=== PATIENT | male | born 1960 | race Hispanic/Latino ===

== ENCOUNTER 2016-10-20 23:08 | Emergency (ER) | payer OTHER, BC ==
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
[2016-10-21 02:51] VITALS: BP 119/76; PULSE 82; RESP 16; TEMP 97.4
[2016-10-21 05:28] VITALS: O2SAT 95
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
== END 2016-10-21 02:51 | disposition home or self-care (01) ==
LOC: C.ER 23:08
DX: S09.90XA Unspecified injury of head, initial encounter (principal); V43.52XA Car driver injured in collision with other type car in traffic accident, initial encounter

== ENCOUNTER 2016-10-22 14:42 | Emergency (ER) | payer BC, OTHER ==
[2016-10-22 14:47] VITALS: TEMP 97.8; O2SAT 98
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
[2016-10-22 16:11] VITALS: BP 128/75; PULSE 82; RESP 18
== END 2016-10-22 16:12 | disposition home or self-care (01) ==
LOC: C.ER 14:42
DX: S39.012D Strain of muscle, fascia and tendon of lower back, subsequent encounter (principal); S46.911D Strain of unspecified muscle, fascia and tendon at shoulder and upper arm level, right arm, subsequent encounter; V43.92XD Unspecified car occupant injured in collision with other type car in traffic accident, subsequent encounter

== ENCOUNTER 2018-01-03 18:10 | Emergency (ER) | payer BC, OTHER ==
[2018-01-03 18:28] VITALS: BP 124/87; PULSE 106; RESP 18; TEMP 97.9; O2SAT 95
[2018-01-03] MEDS ORDERED: Sodium Chloride 0.9% 1,000 ML IV ONE (18:59)
--- NOTE | 2018-01-03 18:59 | C.PDOC ---
History Of Present Illness 57 y/o male presents to the ED with complaints of hematuria since this afternoon. Associated with discomfort in the urethra when urinating. Patient reports extensive history of kidney stones secondary to history of elevated uric acid levels. States he was previously on Allopurinol for years, but ran out of refills and stopped taking it 6-8 months ago. Patient reports he has not had any symptoms until today. He denies any fever, chills, nausea, vomiting, flank/back pain, abdominal pain, urgency, frequency, or other associated symptoms. Time Seen by Provider: 01/03/18 18:43 Chief Complaint (Nursing): Male Genitourinary History Per: Patient History/Exam Limitations: no limitations Onset/Duration Of Symptoms: Hrs Current Symptoms Are (Timing): Still Present Associated Symptoms: Urinary Symptoms Past Medical History Reviewed: Historical Data, Nursing Documentation, Vital Signs Vital Signs: Last Vital Signs Temp 97.9 F 01/03/18 18:24 Pulse 106 H 01/03/18 18:24 Resp 18 01/03/18 18:24 BP 124/87 01/03/18 18:24 Pulse Ox 95 01/03/18 20:27 - Medical History PMH: Diabetes, HTN, Hypercholesterolemia, Kidney Stones Surgical History: Cholecystectomy, Tonsillectomy Family History: States: Unknown Family Hx - Social History Hx Tobacco Use: No Hx Alcohol Use: No Hx Substance Use: Yes (Marijuana) - Immunization History Hx Influenza Vaccination: No Hx Pneumococcal Vaccination: Yes Review Of Systems Constitutional: Negative for: Fever, Chills Cardiovascular: Negative for: Chest Pain Respiratory: Negative for: Shortness of Breath Gastrointestinal: Negative for: Nausea, Vomiting, Abdominal Pain, Diarrhea Genitourinary: Positive for: Dysuria, Hematuria. Negative for: Frequency, Incontinence Musculoskeletal: Negative for: Back Pain Neurological: Negative for: Weakness, Numbness Physical Exam - Physical Exam Appears: Well, Non-toxic, No Acute Distress Skin: Normal Color, Warm, Dry Head: Atraumatic, Normacephalic Eye(s): bilateral: Normal Inspection, PERRL, EOMI Neck: Supple Chest: Symmetrical Cardiovascular: Rhythm Regular, No Murmur Respiratory: Normal Breath Sounds, No Accessory Muscle Use, Other (NARD) Gastrointestinal/Abdominal: Soft, No Tenderness, No Distention, No Guarding Back: Normal Inspection, No CVA Tenderness, No Vertebral Tenderness Extremity: Bilateral: Atraumatic, Normal Color And Temperature, Normal ROM Pulses: Left Radial: Normal, Right Radial: Normal Neurological/Psych: Oriented x3, Normal Speech ED Course And Treatment - Laboratory Results Result Diagrams: 01/03/18 19:19 01/03/18 19:12 O2 Sat by Pulse Oximetry: 95 (RA) Pulse Ox Interpretation: Normal - CT Scan/US CT Abd/Pelvis Other Rad Studies (CT/US): Read By Radiologist, Radiology Report Reviewed CT/US Interpretation: Name: GURWINDER BROWN Age: 57Years M Date: 01/03/2018. Requesting Physician: Destiny Arzate : 1960. [employer] Procedure Ordered As Accession Number of. Images. CT ABDOMEN/PELVIS. WO. CT ABD PELVIS W O PO OR IV. CONT. [id number]. J. 527. Provided Clinical History : HEMATURIA. EXAM: CT Abdomen and Pelvis Without Intravenous Contrast. CLINICAL HISTORY: 57 years old, male; Condition or disease; Kidney or ureter condition; Other: Hematuria. TECHNIQUE: Axial computed tomography images of the abdomen and pelvis without intravenous contrast. All CT. scans at this facility use at least one of these dose optimization techniques: automated exposure. control; mA and/or kV adjustment per patient size (includes targeted exams where dose is matched to. clinical indication); or iterative reconstruction. Coronal and sagittal reformatted images were created and reviewed. COMPARISON: No relevant prior studies available. FINDINGS: Lung bases: Unremarkable. No mass. No consolidation. ABDOMEN: Liver: There is a diffuse decrease in hepatic parenchymal density, consistent with fatty infiltration. Gallbladder and bile ducts: There has been a cholecystectomy. Pancreas: Unremarkable. No ductal dilation. Spleen: Unremarkable. No splenomegaly. Adrenals: Unremarkable. No mass. Kidneys and ureters: The right kidney appears normal. A small nonobstructing stone within the left. kidney. No hydronephrosis is seen bilaterally. Stomach and bowel: Moderate diverticulosis is present in the sigmoid and descending colon. Bowel. loops appear within normal limits, no signs of wall thickening, mucosal edema, or bowel distention. PELVIS: Appendix: A normal appendix is identified. Bladder : Multiple stones are seen in the urinary bladder largest near the left UVJ 1.6 cm. Reproductive: The prostate appears enlarged. ABDOMEN and PELVIS: Intraperitoneal space: Unremarkable. No free air. No significant fluid collection. Bones/joints: No acute fracture. No dislocation. Soft tissues: Small fat-containing paraumbilical hernia is present. Vasculature: Unremarkable. No abdominal aortic aneurysm. Lymph nodes: Unremarkable. No enlarged lymph nodes. IMPRESSION: No acute findings or significant abnormalities are noted within the abdomen and pelvis. Multiple bladder stones are present largest 1.6 cm. Nonobstructing stone left kidney. Incidental, surgical, and other non-acute findings are described above. Thank you for allowing us to participate in the care of your patient. Dictated and Authenticated by: Edvin Oleary MD. 01/03/2018 8:19 PM Eastern Time ([place] & [place]) Progress - Re-Evaluation Re-evaluation Note: 01/03/18 20:24 APPEARS COMFORTABLE VSS. - Data Reviewed Data Reviewed: Lab, Diagnostic imaging, Old records Medical Decision Making Medical Decision Making: Impression: Dysuria, Hematuria, Hx of kidney stones Initial Plan: --BMP --CBC --UA --Urine culture --Pyridium 200 mg PO --IV fluids --CT Abd/Pelvis without contrast Disposition Counseled Patient/Family Regarding: Studies Performed, Diagnosis, Need For Followup, Rx Given - Disposition Referrals: Jas Guzman Jr., MD [Staff Provider] - [facility] [place] [Outside] [facility] [Outside] Disposition: HOME/ ROUTINE Disposition Time: 20:25 Condition: IMPROVED Additional Instructions: TAKE ALLOPURINOL PRESCRIBED Prescriptions: Phenazopyridine HCl [Pyridium] 200 mg PO BID #6 tablet Tamsulosin [Flomax] 0.4 mg PO DAILY #14 cap Instructions: Kidney Stones (DC) Forms: [facility] (Sinhala) - Clinical Impression Clinical Impression: Hematuria, Dysuria, Bladder stones - Scribe Statement The provider has reviewed the documentation as recorded by the Geraldibkrystyna Horn Provider Attestation: All medical record entries made by the Scribe were at my direction and personally dictated by me. I have reviewed the chart and agree that the record accurately reflects my personal performance of the history, physical exam, medical decision making, and the department course for this patient. I have also personally directed, reviewed, and agree with the discharge instructions and disposition.
[2018-01-03 19:15] LABS: BASO # 0.1 K/uL (0.0-0.2); BASO % 0.7 % (0.0-2.0); EOS # 0.2 K/uL (0.0-0.7); EOS % 2.5 % (0.0-4.0); HEMOGLOBIN 16.5 g/dL (12.0-18.0); LYMPH # 3.5 K/uL (1.0-4.3); LYMPH % 38.8 % (20.0-40.0); MEAN CELL VOLUME 85.7 fL (80.0-94.0); MEAN CORPUSCULAR HEMOGLOBIN 30.1 pg (27.0-31.0); MEAN CORPUSCULAR HGB CONC 35.1 g/dL (33.0-37.0); MEAN PLATELET VOLUME 8.4 fL (7.2-11.7); MONO # 0.5 K/uL (0.0-0.8); MONO % 5.9 % (0.0-10.0); NEUT # 4.7 K/uL (1.8-7.0); NEUT % 52.1 % (50.0-75.0); NRBC % 0.6 % (0.0-2.0); RBC 5.48 Mil/uL (4.40-5.90); RED CELL DISTRIBUTION WIDTH 13.3 % (11.5-14.5); WHITE BLOOD COUNT 8.9 K/uL (4.8-10.8)
[2018-01-03] MEDS ORDERED: Sodium Chloride 0.9% 1,000 ML ONE (19:15)
[2018-01-03 19:25] LABS: URINE BACTERIA OCC (<OCC); URINE BILIRUBIN NEGATIVE (NEGATIVE); URINE BLOOD 3+ (NEGATIVE); URINE CLARITY Hazy (Clear); URINE COLOR Amber (YELLOW); URINE GLUCOSE (UA) NORMAL (Normal); URINE LEUKOCYTE ESTERASE NEG Leu/uL (Negative); URINE PROTEIN 2+ mg/dL (NEGATIVE); URINE UROBILINOGEN NORMAL mg/dL (0.2-1.0)
[2018-01-03 19:30] LABS: BLOOD UREA NITROGEN 19 mg/dL (9-20); GFR NON-AFRICAN AMERICAN > 60
--- NOTE | 2018-01-04 09:22 | CT ---
Date of service: 01/03/2018 PROCEDURE: CT Abdomen and Pelvis without intravenous contrast HISTORY: HEMATURIA COMPARISON: None. TECHNIQUE: Multiple contiguous axial images were performed through the abdomen and pelvis without the use of intravenous contrast. Subsequently, sagittal and coronal reformatted images were obtained. Radiation dose: Total exam DLP = 932 mGy-cm. This CT exam was performed using one or more of the following dose reduction techniques: Automated exposure control, adjustment of the mA and/or kV according to patient size, and/or use of iterative reconstruction technique. FINDINGS: LOWER THORAX: 1 millimeter subpleural pulmonary nodule within the anterior aspect of the right middle lobe on series 3, image 80. Lingular atelectasis. LIVER: Diffuse decrease in hepatic parenchymal density consistent with fatty infiltration. GALLBLADDER AND BILE DUCTS: Cholecystectomy. PANCREAS: Unremarkable. No gross lesion or ductal dilatation. SPLEEN: Unremarkable. ADRENALS: Unremarkable. No mass. KIDNEYS AND URETERS: Punctate nonobstructing calculus in the left kidney. Mild right perinephric fat stranding. VASCULATURE: Unremarkable. No aortic aneurysm. BOWEL: Moderate diverticulosis present in the sigmoid and descending colon. APPENDIX: Unremarkable. Normal appendix. PERITONEUM: Unremarkable. No free fluid. No free air. LYMPH NODES: Unremarkable. No enlarged lymph nodes. BLADDER: Multiple prominent and large radiopaque calculi seen within the urinary bladder; for example, in the posterior left aspect of the urinary bladder measuring up to 1.8 centimeters at the left ureterovesicular junction. Additional prominent calculus near the right ureterovesicular measures up to 9 millimeters. Additional multiple calcified foci seen more inferiorly within the urinary bladder measure up to 2.9 centimeters. REPRODUCTIVE: Prominent heterogeneous and enlarged prostate measuring up to 5.9 x 5.5 centimeters. BONES: Degenerative changes in the spine. Mild anterolisthesis of L4 on L5. OTHER FINDINGS: Small fat containing paraumbilical hernia. IMPRESSION: Multiple prominent radiopaque calculi seen throughout the urinary bladder. Clinical correlation. Punctate nonobstructive left renal calculus. Mild right perinephric fat stranding. Prominent and enlarged prostate measuring 5.9 centimeters. Clinical correlation. These findings were preliminarily reported at 8:19 p.m. on 01/03/[address] Edvin Oleary from [employer].
== END 2018-01-03 20:42 | disposition home or self-care (01) ==
LOC: C.ER 18:10
DX: N21.0 Calculus in bladder (principal); R31.9 Hematuria, unspecified; R30.0 Dysuria
CPT/HCPCS: 74176; 80048; 81001; 85025; 87086; 96360; 99283; J7030

== ENCOUNTER 2018-03-30 06:50 | Day surgery (SDC) | payer BC ==
[2018-03-23 11:55] VITALS: BMI 28.2
[2018-03-30] MEDS ORDERED: Lactated Ringer's 1,000 ML IV ONE (09:20)
[2018-03-30] MEDS ORDERED: Propofol 10 mg/ml Inj (20 ML) ONE (09:24)
[2018-03-30] MEDS ORDERED: Midazolam 2 MG/2 ML VIAL ONE (09:24)
[2018-03-30] MEDS ORDERED: Lidocaine Hydrochloride 5 ML INJ ONE (09:24)
[2018-03-30] MEDS ORDERED: Lactated Ringer's 500 ML IV SCH (09:45)
[2018-03-30 10:20] VITALS: TEMP 97.4
[2018-03-30 14:16] VITALS: BP 109/72; PULSE 81; RESP 12; O2SAT 98
== END 2018-03-30 14:15 | disposition home or self-care (01) ==
LOC: C.ENDO 06:50
PROVIDERS: ATTEND Internal Medicine Gastroenterology
DX: K21.9 Gastro-esophageal reflux disease without esophagitis (principal); Z12.11 Encounter for screening for malignant neoplasm of colon; K29.70 Gastritis, unspecified, without bleeding; K31.7 Polyp of stomach and duodenum; K57.30 Diverticulosis of large intestine without perforation or abscess without bleeding; D72.820 Lymphocytosis (symptomatic); D12.5 Benign neoplasm of sigmoid colon
CPT/HCPCS: 43239; 43251; 45380; 45385; 82948; 88305; J2250; J2704; J7120

== ENCOUNTER 2018-08-16 07:24 | Outpatient (CLI) | payer BC | END 2018-08-16 07:25 | disposition home or self-care (01) | LOC: C.CARD 07:25 | DX: R06.02 Shortness of breath (principal) ==